=== PATIENT | male | born 1945 | race Asian ===

== ENCOUNTER 2023-05-08 00:26 | Inpatient (IN) | payer OTHER ==
[~2023-05-08] VITALS: Ht 162.6 cm; Wt 68.0 kg
[2023-05-08] VITALS (23 sets, daily range): BP systolic 82–113; PULSE 96–146; RESP 20–28; TEMP 96.9–99.3; O2SAT 20–98
[2023-05-08] MEDS ORDERED: NACL 0.9% 1,000 ML IV ONE ×4 (01:15→10:15)
[2023-05-08 01:43] LABS: ALANINE AMINOTRANSFERASE 105 U/L (12-78); ALBUMIN 3.6 g/dL (3.4-4.8); ANION GAP 19 (5-15); ASPARTATE AMINOTRANSFERASE 128 U/L (10-37); CALCIUM 10.3 mg/dL (8.4-11.0); CREATININE 5.03 mg/dL (0.55-1.30); GLUCOSE 285 mg/dL (70-99); LIPASE 81 U/L (73-393); PHOSPHORUS 7.6 mg/dL (2.7-4.5); TOTAL BILIRUBIN 1.4 mg/dL (0.0-1.0); UREA NITROGEN, BLOOD 75 mg/dL (8-21)
[2023-05-08 01:44] LABS: ACETAMINOPHEN < 1 ug/mL (1-30); ALCOHOL, BLOOD < 3 mg/dL (<10)
[2023-05-08] MEDS ORDERED: PIPERACILLIN/TAZO 3.375 GM in NS 50 ML IV ONE (01:45)
[2023-05-08] MEDS ORDERED: VANCOMYCIN HCL 1,000 MG in NS 250 ML IV ONE (01:45)
[2023-05-08 01:46] LABS: CHLORIDE 78 mmol/L (98-107)
[2023-05-08 01:51] LABS: BASOPHILS % (AUTO) 0.1 % (0.0-2.0); EOSINOPHILS % (AUTO) 0.2 % (0.0-4.0); HEMATOCRIT 56.3 % (36-54); HEMOGLOBIN 18.7 g/dL (14.0-18.0); LYMPHOCYTES # (AUTO) 0.8 K/uL (1.0-5.5); LYMPHOCYTES % (AUTO) 10.6 % (20.5-51.5); MEAN CORPUSCULAR HEMOGLOBIN 31 pg (27-31); MEAN CORPUSCULAR HGB CONC 33 % (32-36); MEAN CORPUSCULAR VOLUME 94 fL (79.0-98.0); MONOCYTES # (AUTO) 0.4 K/uL (0.0-1.0); NEUTROPHILS # (AUTO) 5.9 K/uL (1.8-7.7); NEUTROPHILS % (AUTO) 83.1 % (40.0-70.0); PLATELET COUNT (AUTO) 182 K/uL (130-430); RED BLOOD CELL COUNT(AUTO) 6.01 MIL/uL (4.2-6.2); RED CELL DISTRIBUTION WIDTH 13.3 % (9.0-15.0); WHITE BLOOD COUNT (AUTO) 7.1 K/uL (4.8-10.8)
[2023-05-08] MEDS ORDERED: VANCOMYCIN HCL 1000 MG/VIAL IV ONE (01:57)
[2023-05-08] MEDS ORDERED: PIPERACILLIN/TAZOBACTAM 3.375 GM/VIAL (ZOSYN) IV ONE (01:58)
[2023-05-08] MEDS ORDERED: NOREPINEPHRINE BITARTRATE 4 MG in NS 246 ML IV ONE ×2 (03:15→03:30)
[2023-05-08] MEDS ORDERED: NOREPINEPHRINE 4 MG/4 ML VIAL IV ONE ×6 (03:28→12:22)
[2023-05-08] MEDS: D5NS 1,000 ML IV SCH ×2 (03:33→15:56)
[2023-05-08] MEDS ORDERED: ONDANSETRON HCL 4 MG/2 ML VIAL ONE ×2 (05:12→05:50)
[2023-05-08] MEDS ORDERED: ONDANSETRON HCL 4 MG/2 ML VIAL IVP ONE (05:15)
[2023-05-08] MEDS ORDERED: PROPOFOL DRIP 200 ML IV ONE (07:11)
[2023-05-08] MEDS ORDERED: PROPOFOL DRIP 100 ML IV ONE (07:15)
[2023-05-08] MEDS ORDERED: ETOMIDATE 20 MG/ 10 ML VIAL (AMIDATE) ONE (07:30)
[2023-05-08] MEDS ORDERED: SUCCINYLCHOLINE CHLORIDE 20 MG/ML(QUELICIN) ONE (07:30)
[2023-05-08] MEDS ORDERED: SODIUM BICARBONATE 8.4% JECT 50 MEQ/50 ML SYRINGE ONE ×2 (07:58→08:06)
[2023-05-08] MEDS ORDERED: SODIUM BICARBONATE 8.4% JECT 50 MEQ/50 ML SYRINGE IVP ONE ×4 (08:00→17:30)
[2023-05-08] MEDS: VASOPRESSIN 40 UNITS in NS 38 ML IV PRN ×2 (08:13→11:05)
[2023-05-08] MEDS ORDERED: ALBUMIN HUMAN 25% 100 ML IV ONE (10:30)
[2023-05-08] MEDS ORDERED: NOREPINEPHRINE BITARTRATE 4 MG in NS 246 ML IV PRN (11:00)
[2023-05-08 11:31] LABS: BILIRUBIN,URINE 1+ (NEGATIVE); BLOOD, URINE 3+ (NEGATIVE); CLARITY/URINE SL CLOUDY (CLEAR); COLOR,URINE YELLOW (YELLOW); GLUCOSE,URINE 3+ (NEGATIVE); KETONES,URINE TRACE (NEGATIVE); LEUKOCYTE ESTERASE ,URINE NEGATIVE (NEGATIVE); NITRITE, URINE NEGATIVE (NEGATIVE); PH,URINE 5.5 (5.0-8.0); PROTEIN URINE 2+ (NEGATIVE); UROBILINOGEN,URINE 0.2 (0.2-1.0)
[2023-05-08 12:01] LABS: BARBITURATE, URINE NEGATIVE (NEG <=200); BENZODIAZEPINE, URINE NEGATIVE (NEG <=150); CANNABINOID, URINE NEGATIVE (NEG <=50); COCAINE, URINE NEGATIVE (NEG <=150); METHAMPHETAMINES SCREEN,URINE NEGATIVE (NEG <=500); OPIATE, URINE NEGATIVE (NEG <=100); PHENCYCLIDINE SCREEN,URINE NEGATIVE (NEG <=25); UR TRICYCLIC ANTIDEPRESSANTS NEGATIVE (NEG <=300); URINE AMPHETAMINE NEGATIVE (NEG <=500); URINE METHADONE NEGATIVE (NEG <=200); URINE OXYCODONE SCREEN NEGATIVE (NEG <=100); URINE PROPOXYPHENE SCREEN NEGATIVE (NEG <=300)
[2023-05-08] MEDS ORDERED: NOREPINEPHRINE BITARTRATE 16 MG in NS 234 ML IV PRN (12:30)
[2023-05-08 12:39] LABS: ALANINE AMINOTRANSFERASE 139 U/L (12-78); ALBUMIN 2.8 g/dL (3.4-4.8); ANION GAP 21 (5-15); ASPARTATE AMINOTRANSFERASE 294 U/L (10-37); CALCIUM 8.4 mg/dL (8.4-11.0); CHLORIDE 91 mmol/L (98-107); CREATININE 4.92 mg/dL (0.55-1.30); GLUCOSE 93 mg/dL (70-99); INR 1.4 (0.80-1.20); PROTHROMBIN TIME 14.4 SECS (9.5-12.5); TOTAL BILIRUBIN 0.9 mg/dL (0.0-1.0); UREA NITROGEN, BLOOD 83 mg/dL (8-21)
[2023-05-08 12:56] LABS: BACTERIA,URINE RARE /HPF (None Seen); COARSE GRANULAR CASTS,URINE 0-5 /LPF (None Seen); HYALINE CASTS, URINE 0-5 /LPF (None Seen); URINE AMORPHOUS URATE 1+ /HPF (None Seen); WBC,URINE 0-3 /HPF (0-3)
[2023-05-08] MEDS ORDERED: NACL 0.9% 1,000 ML IV SCH (13:30)
[2023-05-08] MEDS ORDERED: PIPERACILLIN/TAZO 3.375 GM in NS 50 ML IV SCH (14:00)
[2023-05-08] MEDS ORDERED: ATOR40TA68 PO (15:00)
[2023-05-08] MEDS ORDERED: AMLO5TAB4 PO (15:01)
[2023-05-08] MEDS ORDERED: GLIP2.5T3 PO (15:01)
[2023-05-08] MEDS ORDERED: EZET-75 PO (15:01)
[2023-05-08] MEDS ORDERED: LOSA100T4 PO (15:01)
[2023-05-08] MEDS ORDERED: SEMA7TAB2 PO (15:01)
[2023-05-08] MEDS ORDERED: EMPA25TA PO (15:01)
[2023-05-08] MEDS ORDERED: METF-833 PO (15:01)
[2023-05-08] MEDS ORDERED: MULT-1198 PO (15:01)
[2023-05-08] MEDS: MEROPENEM 1 GM IVPB PREMIX 50 ML IV SCH ×2 (15:14→20:43)
[2023-05-08] MEDS ORDERED: NOREPINEPHRINE BITARTRATE 32 MG in NS 234 ML IV PRN (15:15)
[2023-05-08] MEDS ORDERED: VASOPRESSIN 40 UNITS in NS 38 ML IV PRN (15:15)
[2023-05-08] MEDS ORDERED: DEXTROSE 50% JECT 50 ML DISP.SYRIN IVP PRN (15:15)
[2023-05-08] MEDS ORDERED: D5/0.45 NS 1,000 ML IV SCH (15:15)
[2023-05-08] MEDS ORDERED: DIATR MEGLU/DIATRIZ SOD 30 ML SOLUTION PO ONE (15:16)
[2023-05-08 15:40] LABS: HEMOGLOBIN 15.5 g/dL (14.0-18.0); MEAN CORPUSCULAR HEMOGLOBIN 31 pg (27-31); MEAN CORPUSCULAR HGB CONC 33 % (32-36); MEAN CORPUSCULAR VOLUME 95 fL (79.0-98.0); RED BLOOD CELL COUNT(AUTO) 4.94 MIL/uL (4.2-6.2); RED CELL DISTRIBUTION WIDTH 13.6 % (9.0-15.0)
[2023-05-08 15:50] LABS: PLATELET COUNT (AUTO) 115 K/uL (130-430); WHITE BLOOD COUNT (AUTO) 2.9 K/uL (4.8-10.8)
[2023-05-08 15:57] LABS: BAND % (MANUAL) 13 % (0-6); BASOPHILS % (MANUAL) 0 % (0-2); EOSINOPHILS % (MANUAL) 1 % (0-7); LYMPHOCYTES % (MANUAL) 19 % (20-46); MONOCYTES % (MANUAL) 8 % (0-11)
[2023-05-08 17:03] LABS: ALANINE AMINOTRANSFERASE 129 U/L (12-78); ALBUMIN 2.6 g/dL (3.4-4.8); ANION GAP 22 (5-15); ASPARTATE AMINOTRANSFERASE 264 U/L (10-37); CALCIUM 7.7 mg/dL (8.4-11.0); CHLORIDE 93 mmol/L (98-107); CREATININE 4.87 mg/dL (0.55-1.30); GLUCOSE 69 mg/dL (70-99); TOTAL BILIRUBIN 0.8 mg/dL (0.0-1.0); UREA NITROGEN, BLOOD 82 mg/dL (8-21)
[2023-05-08] MEDS: NOREPINEPHRINE BITARTRATE 32 MG in NS 218 ML IV PRN (19:23)
[2023-05-08] MEDS: PROPOFOL DRIP 100 ML IV PRN (19:27)
[2023-05-08] MEDS: IPRATROPIUM/ALBUTEROL SULFATE 3 ML AMPUL.NEB (DUONEB) INH SCH (19:40)
[2023-05-09] VITALS (34 sets, daily range): BP systolic 84–119; PULSE 104–127; RESP 20–36; TEMP 99.2–99.9; O2SAT 87–96
[2023-05-09] MEDS ORDERED: NACL 0.9% 1,000 ML IV SCH
[2023-05-09] MEDS ORDERED: NACL 0.9% 1,000 ML IV ONE
[2023-05-09] MEDS ORDERED: PHENYLEPHRINE HCL 10 MG/ML VIAL (NEOSYNEPHRINE) ONE (00:19)
[2023-05-09] MEDS: IPRATROPIUM/ALBUTEROL SULFATE 3 ML AMPUL.NEB (DUONEB) INH SCH ×4 (00:47→19:25)
[2023-05-09 01:54] LABS: ALANINE AMINOTRANSFERASE 122 U/L (12-78); ANION GAP 16 (5-15); ASPARTATE AMINOTRANSFERASE 204 U/L (10-37); CHLORIDE 99 mmol/L (98-107); CREATININE 5.07 mg/dL (0.55-1.30); GLUCOSE 181 mg/dL (70-99); PHOSPHORUS 3.6 mg/dL (2.7-4.5); TOTAL BILIRUBIN 0.7 mg/dL (0.0-1.0); UREA NITROGEN, BLOOD 84 mg/dL (8-21); VANCOMYCIN,RANDOM 13.7 ug/mL
[2023-05-09 02:01] LABS: CALCIUM 6.6 mg/dL (8.4-11.0)
[2023-05-09] MEDS: PROPOFOL DRIP 100 ML IV PRN ×3 (03:26→16:53)
[2023-05-09] MEDS: NOREPINEPHRINE BITARTRATE 32 MG in NS 218 ML IV PRN ×3 (03:27→18:43)
[2023-05-09 05:21] LABS: BASOPHILS % (AUTO) 0.1 % (0.0-2.0); EOSINOPHILS # (AUTO) 0.3 K/uL (0.0-0.4); EOSINOPHILS % (AUTO) 4.5 % (0.0-4.0); HEMATOCRIT 45.6 % (36-54); HEMOGLOBIN 15.1 g/dL (14.0-18.0); LYMPHOCYTES # (AUTO) 0.5 K/uL (1.0-5.5); LYMPHOCYTES % (AUTO) 8.2 % (20.5-51.5); MEAN CORPUSCULAR HEMOGLOBIN 31 pg (27-31); MEAN CORPUSCULAR HGB CONC 33 % (32-36); MEAN CORPUSCULAR VOLUME 95 fL (79.0-98.0); MONOCYTES # (AUTO) 0.4 K/uL (0.0-1.0); NEUTROPHILS % (AUTO) 80.2 % (40.0-70.0); PLATELET COUNT (AUTO) 88 K/uL (130-430); RED CELL DISTRIBUTION WIDTH 13.8 % (9.0-15.0); WHITE BLOOD COUNT (AUTO) 6.2 K/uL (4.8-10.8)
[2023-05-09] MEDS: D5NS 1,000 ML IV SCH ×3 (08:04→20:01)
[2023-05-09] MEDS: MEROPENEM 1 GM IVPB PREMIX 50 ML IV SCH ×3 (08:04→22:22)
[2023-05-09] MEDS: PHENYLEPHRINE HCL 100 MG in NS 240 ML IV PRN ×2 (08:11→16:09)
[2023-05-09] MEDS ORDERED: KCL 20 mEq in 100 mL (PREMIX) 100 ML IV ONE (08:30)
[2023-05-09] MEDS ORDERED: SODIUM BICARBONATE 8.4% JECT 50 MEQ/50 ML SYRINGE IVP ONE ×2 (08:30→18:30)
[2023-05-09] MEDS ORDERED: ALBUMIN HUMAN 25% 200 ML IV ONE (08:30)
[2023-05-09] MEDS: EPINEPHrine HCL 10 MG in NS 240 ML IV PRN ×2 (10:05→22:46)
[2023-05-09] MEDS: INSULIN REGULAR, HUMAN 100 UNITS/ML, 3 ML VIAL (humuLIN R) SUBCUT PRN ×3 (11:47→22:30)
[2023-05-09] MEDS ORDERED: VANCOMYCIN HCL 1,000 MG in NS 250 ML IV ONE (12:00)
[2023-05-09 13:03] LABS: URINE SODIUM, RANDOM 17 mmol/L (40-220)
[2023-05-09] MEDS ORDERED: CALCIUM GLUC 1 GM/100ML-NACL 100 ML IV ONE (20:30)
[2023-05-10] VITALS: BP_SYST 98; PULSE 112; RESP 20; TEMP 99.8; O2SAT 88
[2023-05-10 00:10] VITALS: BP_SYST 56; PULSE 102; RESP 20; O2SAT 76
[2023-05-10 00:30] VITALS: BP_SYST 73; PULSE 127; RESP 37; O2SAT 83
[2023-05-10 00:49] VITALS: BP_SYST 89; PULSE 123
[2023-05-10 01:00] VITALS: BP_SYST 57; PULSE 118; RESP 27; O2SAT 87
[2023-05-10] MEDS: IPRATROPIUM/ALBUTEROL SULFATE 3 ML AMPUL.NEB (DUONEB) INH SCH (01:00)
[2023-05-10 01:20] VITALS: BP_SYST 49; PULSE 100; RESP 25; O2SAT 77
[2023-05-10] MEDS ORDERED: EPINEPHrine JECT 0.1 MG/ML SYR IVP ONE (02:12)
[2023-05-10] MEDS ORDERED: CALCIUM CHLORIDE 1 GM/10ML VIAL (13.6 mEq Ca++/VIAL) IVP ONE (02:12)
[2023-05-10] MEDS ORDERED: MEROPENEM 500 MG IVPB PREMIX 50 ML IV SCH (09:00)
[2023-05-10 13:07] LABS: CREATININE, URINE 135.6 mg/dL (Not Estab.); MICROALBUMIN URINE RANDOM 313.1 ug/mL (Not Estab.)
== END 2023-05-10 02:13 | DRG 871 ==
LOC: SED 00:26 → SIC 06:48
PROVIDERS: ADMIT Internal Medicine; ATTEND Internal Medicine
PROC: 5A1945Z Respiratory Ventilation, 24-96 Consecutive Hours (ICD-10-PCS; principal; 2023-05-08)
PROC: 02HV33Z Insertion of Infusion Device into Superior Vena Cava, Percutaneous Approach (ICD-10-PCS; 2023-05-08)
PROC: B548ZZA Ultrasonography of Superior Vena Cava, Guidance (ICD-10-PCS; 2023-05-08)
PROC: 5A1D80Z Performance of Urinary Filtration, Prolonged Intermittent, 6-18 hours Per Day (ICD-10-PCS; 2023-05-08)
PROC: 0BH17EZ Insertion of Endotracheal Airway into Trachea, Via Natural or Artificial Opening (ICD-10-PCS; 2023-05-08)
PROC: 02HV33Z Insertion of Infusion Device into Superior Vena Cava, Percutaneous Approach (ICD-10-PCS; 2023-05-09)
PROC: B548ZZA Ultrasonography of Superior Vena Cava, Guidance (ICD-10-PCS; 2023-05-09)
PROC: 5A12012 Performance of Cardiac Output, Single, Manual (ICD-10-PCS; 2023-05-10)
DX: A41.9 Sepsis, unspecified organism (principal); D65 Disseminated intravascular coagulation [defibrination syndrome]; G93.41 Metabolic encephalopathy; J69.0 Pneumonitis due to inhalation of food and vomit; R65.21 Severe sepsis with septic shock; J80 Acute respiratory distress syndrome; K72.00 Acute and subacute hepatic failure without coma; I21.4 Non-ST elevation (NSTEMI) myocardial infarction; N10 Acute pyelonephritis; K56.7 Ileus, unspecified; K56.609 Unspecified intestinal obstruction, unspecified as to partial versus complete obstruction; E87.1 Hypo-osmolality and hyponatremia; N17.9 Acute kidney failure, unspecified; E87.20 Acidosis, unspecified; E78.5 Hyperlipidemia, unspecified; E86.0 Dehydration; I12.9 Hypertensive chronic kidney disease with stage 1 through stage 4 chronic kidney disease, or unspecified chronic kidney disease; E11.22 Type 2 diabetes mellitus with diabetic chronic kidney disease; N18.9 Chronic kidney disease, unspecified; Z87.891 Personal history of nicotine dependence
CPT/HCPCS: 36415; 36600; 70450-TC; 71045; 71250-TC; 72125-TC; 74018; 76376; 76770; 80053; 80202; 80307; 81000; 82043; 82140; 82570; 82803; 82962; 83605; 83690; 83735; 83880; 84100; 84302; 84443; 84484; 85007; 85025; 85027; 85610-TC; 85730-TC; 86886; 86900; 86901; 87040; 87070-TC; 87081; 87086; 87205-TC; 92950; 93005; 93306; 94002; 94003; 94640; 96365; 96368; 99291; 99292; G0480; G0481; G0482; J0171; J0330; J2185; J2370; J2405; J2543; J2704; J3370; J3480; J3490; J7030; J7042; J7050; Q9964